=== PATIENT | male | born 1990 | race Asian ===

== ENCOUNTER 2024-06-17 11:19 | Emergency (ER) | payer BC ==
[~2024-06-17] VITALS: Ht 177.8 cm; Wt 90.0 kg
[2024-06-17 11:20] VITALS: BP 138/79; PULSE 80; RESP 16; TEMP 97.5; O2SAT 98
[2024-06-17] MEDS ORDERED: MELO-102 PO (13:38)
[2024-06-17] MEDS: dexamethasone sod phosphate 10mg/ml inj IM STA (14:02)
== END 2024-06-17 14:17 | disposition home or self-care (01) ==
LOC: ER 11:20
DX: M25.532 Pain in left wrist (principal)
CPT/HCPCS: 73110; 96372; 99283; J1100